=== PATIENT | female | born 1995 | race African-American/Black ===

== ENCOUNTER 2017-08-09 19:40 | Emergency (ER) | payer MEDICAID, OTHER ==
[~2017-08-09] VITALS: Ht 175.3 cm; Wt 66.0 kg
[~2017-08-09 19:40] MED LIST: NOCURR
[2017-08-09] MEDS ORDERED: PERTUSS(ACELL),DIPH,TET VAC/PF 0.5 ML VIAL IM ONE (21:30)
[2017-08-09 22:02] VITALS: BP 144/78
== END 2017-08-09 22:18 | disposition home or self-care (01) ==
LOC: EMS 19:41
DX: S91.332A Puncture wound without foreign body, left foot, initial encounter (principal); W22.8XXA Striking against or struck by other objects, initial encounter; Y93.01 Activity, walking, marching and hiking; Y92.89 Other specified places as the place of occurrence of the external cause; Y99.8 Other external cause status
CPT/HCPCS: 90471; 90715; 99283; 99284